=== PATIENT | female | born 1975 | race Two or more races ===

== ENCOUNTER → 2017-12-12 | Outpatient (CLI) | payer OTHER ==
[2017-12-13 08:07] LABS: RUBEOLA (MEASLES) IGG >300.0 AU/mL (Immune >29.9)
== END | disposition home or self-care (01) ==
LOC: EMPHLTH 11:15
PROVIDERS: ATTEND Internal Medicine
DX: Z02.1 Encounter for pre-employment examination (principal); R76.11 Nonspecific reaction to tuberculin skin test without active tuberculosis
CPT/HCPCS: 86706; 86735; 86762; 86765; 86787

== ENCOUNTER → 2020-06-23 | Outpatient (CLI) | payer OTHER | END | disposition home or self-care (01) | LOC: RADMN 14:05 | PROVIDERS: ATTEND Nurse Practitioner | DX: M25.572 Pain in left ankle and joints of left foot (principal); R22.42 Localized swelling, mass and lump, left lower limb | CPT/HCPCS: 73610-TC ==

== ENCOUNTER 2021-06-22 22:39 | Emergency (ER) | payer OTHER ==
[~2021-06-22] VITALS: Ht 165.1 cm; Wt 68.0 kg
[2021-06-22 23:47] LABS: BASOPHILS % (AUTO) 0.3 % (0.0-2.0); EOSINOPHILS % (AUTO) 0.5 % (1.0-6.0); HEMATOCRIT 42.3 % (36-46); LYMPHOCYTES # (AUTO) 0.9 K/uL (1.0-4.8); LYMPHOCYTES % (AUTO) 4.9 % (22.0-44.0); MEAN CORPUSCULAR HEMOGLOBIN 28.2 pg (26.0-34.0); MEAN CORPUSCULAR HGB CONC 33.2 G/dL (31.0-37.0); MEAN CORPUSCULAR VOLUME 85 fL (80-100); MONOCYTES % (AUTO) 5.1 % (2.0-9.0); NEUTROPHILS # (AUTO) 16.6 K/uL (1.8-7.7); PLATELET COUNT (AUTO) 277 K/uL (150-450); RED BLOOD CELL COUNT(AUTO) 4.96 MIL/uL (4.00-5.20); RED CELL DISTRIBUTION WIDTH 14.6 % (11.5-14.5)
[2021-06-22 23:48] LABS: NEUTROPHILS % (AUTO) 89.2 % (40.0-70.0)
[2021-06-22 23:56] LABS: ANION GAP 5 mmol/L (8-16); CALCIUM, TOTAL 9.2 mg/dL (8.8-10.5); CARBON DIOXIDE 32 mmol/L (22-29); CHLORIDE 101 mmol/L (98-107); CREATININE 0.85 mg/dL (0.60-1.30); GLOMERULAR FILTR. RATE CALC > 60 mL/min (>60); GLUCOSE,RANDOM 111 mg/dL (70-110); POTASSIUM 4.7 mmol/L (3.5-5.1); SODIUM SERUM 138 mmol/L (136-145); UREA NITROGEN, BLOOD 10 mg/dL (7-18)
[2021-06-23 00:03] LABS: ALANINE AMINOTRANSFERASE 25 U/L (12-78); ALBUMIN 3.7 g/dL (3.4-5.0); ALKALINE PHOSPHATASE 78 U/L (46-116); ASPARTATE AMINOTRANSFERASE 16 U/L (15-37); BILIRUBIN,TOTAL 0.6 mg/dL (0.1-1.0); TOTAL PROTEIN, SERUM 8.4 g/dL (6.4-8.2)
[2021-06-23 00:11] LABS: APPEARANCE,URINE HAZY (CLEAR); BILIRUBIN,URINE NEGATIVE (NEGATIVE); GLUCOSE, URINE (UA) NEGATIVE (NEGATIVE); KETONES,URINE NEGATIVE (NEGATIVE); LEUKOCYTE ESTERASE ,URINE LARGE (NEGATIVE); NITRATE,URINE NEGATIVE (NEGATIVE); OCCULT BLOOD,URINE SMALL (NEGATIVE); PROTEIN,URINE 30-70 mg/dL (NEGATIVE); SPECIFIC GRAVITIY, URINE 1.011 (1.003-1.030); UROBILINOGEN,URINE <=1.0 mg/dL (<=1.0)
[2021-06-23 00:26] LABS: BACTERIA,URINE Few /HPF (None Seen); SQUAMOUS EPITHELIAL CELL,UR Few /LPF (None Seen); WBC,URINE 51-100 /HPF (0-5)
[2021-06-23] MEDS ORDERED: SODIUM CHLORIDE 0.9% 2,050 ML IV ONE (00:30)
[2021-06-23] MEDS ORDERED: SODIUM CHLORIDE 0.9% 1,000 ML IV ONE (00:30)
[2021-06-23] MEDS ORDERED: KETOROLAC TROMETHAMINE 30 MG/ML VIAL IVP ONE (00:30)
[2021-06-23] MEDS ORDERED: CefTRIAXone 1 GM/DEXTROSE 50 ML IV ONE (00:30)
[2021-06-23] MEDS ORDERED: SODIUM CHLORIDE 0.9% 100 ML ONE (00:52)
[2021-06-23] MEDS ORDERED: IOHEXOL 350 MG/ML 100 ML VIAL ONE (00:52)
[2021-06-23] MEDS ORDERED: CEFD300C3 PO (04:47)
[2021-06-23 05:15] VITALS: BP 105/60
== END 2021-06-23 05:25 | disposition home or self-care (01) ==
LOC: EMS 22:47
DX: N12 Tubulo-interstitial nephritis, not specified as acute or chronic (principal); Z86.69 Personal history of other diseases of the nervous system and sense organs; Z90.49 Acquired absence of other specified parts of digestive tract; Z98.890 Other specified postprocedural states; Z87.448 Personal history of other diseases of urinary system; Z87.19 Personal history of other diseases of the digestive system
CPT/HCPCS: 36415; 74177; 80053; 81001; 83605; 85025; 87040; 87086; 87491; 87591; 96365; 96366; 96375; 99285; J0696; J1885; J7030; J7050; Q9967

== ENCOUNTER 2021-10-25 03:59 | Emergency (ER) | payer OTHER ==
[~2021-10-25] VITALS: Ht 165.1 cm; Wt 68.0 kg
[~2021-10-25 03:59] MED LIST: CEFD300C18 PO
[2021-10-25] MEDS ORDERED: METH-659 PO (04:06)
[2021-10-25] MEDS ORDERED: IBUP200C5 PO (04:06)
[2021-10-25] MEDS ORDERED: HYDROCODONE/ACETAMINOPHEN 5-325 MG TABLET PO ONE (04:30)
[2021-10-25] MEDS ORDERED: KETOROLAC TROMETHAMINE 30 MG/ML VIAL IM ONE (04:30)
[2021-10-25] MEDS ORDERED: TRAM50TA4 PO (05:20)
[2021-10-25 05:36] VITALS: BP 141/74
== END 2021-10-25 06:00 | disposition home or self-care (01) ==
LOC: EMS 04:02
DX: M62.830 Muscle spasm of back (principal); Z79.899 Other long term (current) drug therapy
CPT/HCPCS: 99283; 96372; J1885

== ENCOUNTER 2021-11-02 07:22 | Emergency (ER) | payer OTHER ==
[~2021-11-02] VITALS: Ht 165.1 cm; Wt 68.2 kg
[~2021-11-02 07:22] MED LIST changes: +IBUP200C5 PO; +METH-659 PO; +TRAM50TA4 PO
[2021-11-02 07:26] VITALS: BP 123/99
[2021-11-02] MEDS ORDERED: PERTUSS(ACELL),DIPH,TET VAC/PF 0.5 ML SYRINGE IM. ONE (08:15)
== END 2021-11-02 08:37 | disposition home or self-care (01) ==
LOC: EMS 07:23
DX: S61.412A Laceration without foreign body of left hand, initial encounter (principal); W26.0XXA Contact with knife, initial encounter; Y93.89 Activity, other specified; Y92.89 Other specified places as the place of occurrence of the external cause; Y99.8 Other external cause status; Z79.899 Other long term (current) drug therapy
CPT/HCPCS: 12001; 90471; 90715; 99283

== ENCOUNTER → 2021-11-08 | Outpatient (CLI) | payer OTHER | END | disposition home or self-care (01) | LOC: RADMN 12:48 | PROVIDERS: ATTEND Internal Medicine | DX: R76.11 Nonspecific reaction to tuberculin skin test without active tuberculosis (principal); Z90.49 Acquired absence of other specified parts of digestive tract | CPT/HCPCS: 71045 ==

== ENCOUNTER 2022-04-27 19:33 | Emergency (ER) | payer OTHER ==
[~2022-04-27] VITALS: Ht 165.1 cm; Wt 70.5 kg
[~2022-04-27 19:33] MED LIST changes: +TRAM-559 PO; -TRAM50TA4 PO
[2022-04-27 21:57] LABS: APPEARANCE,URINE HAZY (CLEAR); BILIRUBIN,URINE NEGATIVE (NEGATIVE); GLUCOSE, URINE (UA) NEGATIVE (NEGATIVE); KETONES,URINE NEGATIVE (NEGATIVE); LEUKOCYTE ESTERASE ,URINE LARGE (NEGATIVE); NITRATE,URINE NEGATIVE (NEGATIVE); OCCULT BLOOD,URINE LARGE (NEGATIVE); PH,URINE 7.5 (5.0-8.0); PROTEIN,URINE TRACE mg/dL (NEGATIVE); UROBILINOGEN,URINE <=1.0 mg/dL (<=1.0)
[2022-04-27] MEDS ORDERED: IBUPROFEN 600 MG TABLET PO ONE (22:00)
[2022-04-27] MEDS ORDERED: ACETAMINOPHEN 500 MG TABLET PO ONE (22:00)
[2022-04-27 22:15] VITALS: BP 134/71
[2022-04-27 22:17] LABS: RBC,URINE 51-100 /HPF (0-2)
[2022-04-27 22:18] LABS: WBC,URINE 26-50 /HPF (0-5)
[2022-04-27 22:19] LABS: BACTERIA,URINE Few /HPF (None Seen)
[2022-04-27] MEDS ORDERED: CEPH-558 PO (22:36)
[2022-04-27] MEDS ORDERED: CEPHALEXIN MONOHYDRATE 500 MG CAPSULE PO ONE (22:45)
== END 2022-04-27 23:08 | disposition home or self-care (01) ==
LOC: EMS 19:34
DX: N39.0 Urinary tract infection, site not specified (principal); K80.20 Calculus of gallbladder without cholecystitis without obstruction; R56.9 Unspecified convulsions; Z90.49 Acquired absence of other specified parts of digestive tract; Z98.890 Other specified postprocedural states
CPT/HCPCS: 81001; 84703; 87086; 87186; 99284; Z7502; Z7610

== ENCOUNTER 2023-06-26 00:31 | Emergency (ER) | payer SELFPAY ==
[~2023-06-26] VITALS: Ht 162.6 cm; Wt 70.5 kg
[~2023-06-26 00:31] MED LIST changes: -CEFD300C18 PO; +CEPH-558 PO; -IBUP200C5 PO; -METH-659 PO; -TRAM-559 PO
[2023-06-26 00:56] VITALS: BP 154/77; PULSE 80; RESP 16; TEMP 98.3
[2023-06-26] MEDS: ACETAMINOPHEN 500 MG TABLET PO ONE (02:04)
[2023-06-26] MEDS ORDERED: IBUP-1492 PO (04:07)
[2023-06-26] MEDS ORDERED: ACET-3385 PO (04:07)
== END 2023-06-26 04:21 | disposition home or self-care (01) ==
LOC: EMS 00:32
DX: S93.402A Sprain of unspecified ligament of left ankle, initial encounter (principal); S93.401A Sprain of unspecified ligament of right ankle, initial encounter; R56.9 Unspecified convulsions; K80.20 Calculus of gallbladder without cholecystitis without obstruction; Z90.49 Acquired absence of other specified parts of digestive tract; Z98.890 Other specified postprocedural states; W10.9XXA Fall (on) (from) unspecified stairs and steps, initial encounter; Y93.89 Activity, other specified; Y92.89 Other specified places as the place of occurrence of the external cause; Y99.8 Other external cause status
CPT/HCPCS: 99283

== ENCOUNTER 2023-08-30 19:56 | Emergency (ER) | payer OTHER ==
[~2023-08-30] VITALS: Ht 162.6 cm; Wt 72.7 kg
[~2023-08-30 19:56] MED LIST changes: +ACET-3385 PO; +IBUP-1492 PO
[2023-08-30 20:20] VITALS: BP 149/96; PULSE 86; RESP 16; TEMP 98.1
[2023-08-30] MEDS: LIDOCAINE 1% 10 ML VIAL SQ ONE (22:45)
[2023-08-30] MEDS: OxyCODONE HCL/ACETAMINOPHEN 5-325 MG TABLET PO ONE (22:46)
[2023-08-30 23:12] LABS: BASOPHILS % (AUTO) 0.7 % (0.0-2.0); EOSINOPHILS % (AUTO) 2.3 % (1.0-6.0); HEMATOCRIT 39.3 % (36-46); HEMOGLOBIN 13.1 g/dL (12.0-16.0); LYMPHOCYTES # (AUTO) 2.8 K/uL (1.0-4.8); MEAN CORPUSCULAR HEMOGLOBIN 28.6 pg (26.0-34.0); MEAN CORPUSCULAR HGB CONC 33.4 G/dL (31.0-37.0); MEAN CORPUSCULAR VOLUME 86 fL (80-100); MONOCYTES % (AUTO) 8.7 % (2.0-9.0); NEUTROPHILS # (AUTO) 7.5 K/uL (1.8-7.7); NEUTROPHILS % (AUTO) 64.3 % (40.0-70.0); PLATELET COUNT (AUTO) 242 K/uL (150-450); RED BLOOD CELL COUNT(AUTO) 4.58 MIL/uL (4.00-5.20); WHITE BLOOD COUNT (AUTO) 11.7 K/uL (4.5-11.0)
[2023-08-31] MEDS: SULFAMETHOX/TRIMETH DS 800-160 MG/TABLET PO ONE (00:20)
[2023-08-31] MEDS: CefTRIAXone 1 GM/DEXTROSE 50 ML IV ONE (00:20)
[2023-08-31] MEDS ORDERED: SULF-261 PO (00:27)
[2023-08-31] MEDS ORDERED: CEPH-558 PO (00:27)
[2023-08-31] MEDS ORDERED: IBUP-1492 PO (00:28)
[2023-09-01] MEDS ORDERED: IBUP-2070 PO (09:12)
[2023-09-01] MEDS ORDERED: BACTDSB PO (09:12)
[2023-09-01] MEDS ORDERED: CEPH500C2 PO (09:12)
== END 2023-08-31 00:51 | disposition home or self-care (01) ==
LOC: EMS 19:56
DX: N61.1 Abscess of the breast and nipple (principal); I10 Essential (primary) hypertension; Z90.49 Acquired absence of other specified parts of digestive tract; Z98.890 Other specified postprocedural states
CPT/HCPCS: 99283; 10060; 85025; 36415; 96374; J3490; J0696

== ENCOUNTER → 2024-12-11 | Emergency (ER) | payer OTHER ==
[~2024-12-11] VITALS: Ht 162.6 cm; Wt 75.0 kg
[~2024-12-11] MED LIST changes: -ACET-3385 PO; +BACTDSB PO; -CEPH-558 PO; +CEPH500C2 PO; -IBUP-1492 PO; +IBUP600 PO
[2024-12-11 11:37] VITALS: TEMP 97.9
[2024-12-11 12:21] LABS: PLATELET COUNT (AUTO) 280 K/uL (150-450); RED BLOOD CELL COUNT(AUTO) 5.05 MIL/uL (4.00-5.20); RED CELL DISTRIBUTION WIDTH 15.4 % (11.5-14.5); WHITE BLOOD COUNT (AUTO) 8.5 K/uL (4.5-11.0)
[2024-12-11 12:23] LABS: ERYTHROCYTE SEDIMENTATION RATE 19 MM/HR (0-30)
[2024-12-11 12:42] LABS: CALCIUM, TOTAL 9.4 mg/dL (8.8-10.5); CREATININE 0.71 mg/dL (0.60-1.30); GLOMERULAR FILTR. RATE CALC > 60 mL/min (>60); GLUCOSE,RANDOM 123 mg/dL (70-110); SODIUM SERUM 142 mmol/L (136-145); UREA NITROGEN, BLOOD 16 mg/dL (7-18)
[2024-12-11 13:04] LABS: ASPARTATE AMINOTRANSFERASE 40.0 U/L (15-37); TOTAL PROTEIN, SERUM 8.2 g/dL (6.4-8.2)
[2024-12-11 13:26] LABS: TROPONIN I-HIGH SENSITIVITY 34 ng/L (<51)
[2024-12-11 13:27] LABS: COVID AG,FIA SOURCE NASAL SWAB
[2024-12-11] MEDS: SODIUM CHLORIDE 0.9% 1,000 ML IV ONE (13:44)
[2024-12-11] MEDS: ONDANSETRON HCL 4 MG/2 ML VIAL IVP ONE (13:44)
[2024-12-11 13:45] LABS: INFLUENZA TYPE A NEGATIVE FOR TYPE A (NEGATIVE); INFLUENZA TYPE B NEGATIVE FOR TYPE B (NEGATIVE); SARS-COV2 (COVID) ANTIGEN,FIA Negative (Negative)
[2024-12-11 14:53] LABS: TROPONIN I-HIGH SENSITIVITY 29 ng/L (<51)
[2024-12-11 15:05] LABS: APPEARANCE,URINE CLEAR (CLEAR); GLUCOSE, URINE (UA) NEGATIVE (NEGATIVE); LEUKOCYTE ESTERASE ,URINE SMALL (NEGATIVE); NITRATE,URINE NEGATIVE (NEGATIVE); OCCULT BLOOD,URINE NEGATIVE (NEGATIVE); SPECIFIC GRAVITIY, URINE 1.031 (1.003-1.030)
[2024-12-11 15:36] VITALS: BP 133/75; PULSE 66; RESP 18; O2SAT 98
[2024-12-11 15:39] LABS: CALCIUM OXALATE CRYSTALS,UR Rare /LPF (None Seen); SQUAMOUS EPITHELIAL CELL,UR Rare /LPF (None Seen)
== END | disposition still patient (30) ==
LOC: EMS 11:32
DX: R53.1 Weakness (principal); R42 Dizziness and giddiness; R06.02 Shortness of breath; R11.0 Nausea; I10 Essential (primary) hypertension; Z90.49 Acquired absence of other specified parts of digestive tract; Z79.1 Long term (current) use of non-steroidal anti-inflammatories (NSAID); Z79.899 Other long term (current) drug therapy; Z20.822 Contact with and (suspected) exposure to COVID-19
CPT/HCPCS: 99285; 96374; 71045; 96361; 87426; 80048; 80076; 81001; 82550; 84484; 84703; 85025; 85610; 85651; 87804; 93005; 36415; J2405; J7030

== ENCOUNTER 2025-02-24 10:42 | Emergency (ER) | payer OTHER ==
[~2025-02-24] VITALS: Ht 162.6 cm; Wt 72.0 kg
[2025-02-24 11:15] VITALS: TEMP 98.1
[2025-02-24 11:28] LABS: COVID AG,FIA SOURCE NASAL SWAB
[2025-02-24 12:07] LABS: RAPID GROUP A STREP PRELIM. NEGATIVE (NEGATIVE)
[2025-02-24 12:08] LABS: SARS-COV2 (COVID) ANTIGEN,FIA Negative (Negative)
[2025-02-24 12:09] LABS: INFLUENZA TYPE A NEGATIVE FOR TYPE A (NEGATIVE); INFLUENZA TYPE B NEGATIVE FOR TYPE B (NEGATIVE)
[2025-02-24] MEDS: ACETAMINOPHEN 500 MG TABLET PO ONE (12:16)
[2025-02-24] MEDS: SODIUM CHLORIDE 0.9% 500 ML IV ONE (13:01)
[2025-02-24 13:30] VITALS: BP 143/78; PULSE 96; RESP 15; O2SAT 100
[2025-02-24 13:52] LABS: PLATELET COUNT (AUTO) 237 K/uL (150-450); RED BLOOD CELL COUNT(AUTO) 4.58 MIL/uL (4.00-5.20); RED CELL DISTRIBUTION WIDTH 14.4 % (11.5-14.5); WHITE BLOOD COUNT (AUTO) 10.9 K/uL (4.5-11.0)
[2025-02-24 14:03] LABS: CALCIUM, TOTAL 8.8 mg/dL (8.8-10.5); CREATININE 0.63 mg/dL (0.60-1.30); GLOMERULAR FILTR. RATE CALC > 60 mL/min (>60); GLUCOSE,RANDOM 99 mg/dL (70-110); SODIUM SERUM 142 mmol/L (136-145); UREA NITROGEN, BLOOD 11 mg/dL (7-18)
[2025-02-24 14:09] LABS: ASPARTATE AMINOTRANSFERASE 28.0 U/L (15-37); TOTAL PROTEIN, SERUM 7.4 g/dL (6.4-8.2)
[2025-02-24] MEDS: KETOROLAC TROMETHAMINE 30 MG/ML VIAL IVP ONE (14:49)
[2025-02-24] MEDS ORDERED: LOPE-232 PO (18:37)
== END 2025-02-24 15:09 | disposition home or self-care (01) ==
LOC: EMS 10:43
DX: J98.8 Other specified respiratory disorders (principal); R19.7 Diarrhea, unspecified; I10 Essential (primary) hypertension; Z90.49 Acquired absence of other specified parts of digestive tract; Z20.822 Contact with and (suspected) exposure to COVID-19
CPT/HCPCS: 99283; 96374; 96361; 87426; 80048; 80076; 83690; 85025; 87081; 87430; 87804; 36415; J1885; J7030